=== PATIENT | male | born 1965 | race Caucasian/White ===

== ENCOUNTER 2025-07-23 18:24 | Observation (INO) | payer OTHER, SELFPAY ==
[2025-07-23] VITALS (10 sets, daily range): BP systolic 111–153; BP diastolic 74–130; BMI 32.9; BMI 31.8
--- NOTE | 2025-07-23 13:00 | ED.GENMED ---
History of Present Illness
<Tiara Lam PA-C - Last Filed: 07/23/25 18:11>
General
Chief Complaint: Chest Pain
Source: patient
Exam Limitations: none
Time Seen by Provider: 07/23/25 12:45
History of Present Illness
History of Present Illness:
60yoM with a history of hypertension, hyperlipidemia, and TIA presenting for evaluation of chest pain. Symptoms began yesterday morning when he woke up from sleep. He reports a tightness sensation throughout his upper chest. He also is having a
scratchy sensation in the back of this throat. He went to see his PCP today and was having significant shortness of breath while walking up the steps. His oxygen saturation was 85-90% at his PCP's office and he was sent to the ED for evaluation.
Patient was diagnosed with pneumonia about 5 months ago and he states he never fully rebounded from that. He denies any calf pain, leg swelling, fevers. He chews tobacco but denies smoking.
Past History
<Tiara Lam PA-C - Last Filed: 07/23/25 18:11>
Past History
ED Past Medical History: HTN, Hypercholesterolemia and Other (Ascending aortic aneurysm)
Social History
Tobacco: Non-smoker
Phy Exam
<Tiara Lam PA-C - Last Filed: 07/23/25 18:11>
General Physical Exam
General Presentation: well appearing and no apparent distress
General Skin: warm and dry
General Habitus: normal
General Mental: alert
ENT Exam
ENT Exam: normocephalic
Cardiovascular Exam
Cardiovascular Exam: no edema, no murmur and tachycardia
Pulmonary Exam
Pulmonary Exam: lungs clear, no respiratory distress, no rales, no crackles, no rhonchi and no wheezing
Neurological Exam
Neurological Exam: alert
[place] Coma Scale
Eye Opening: Spontaneous
Verbal Response: Oriented
Motor Response: Obeys Commands
GCS Total Score: 15
Skin Exam
Skin Exam: normal color and warm/dry
Psychiatric Exam
Psychiatric Exam: normal mood/affect
Scores
<Tiara Lam PA-C - Last Filed: 07/23/25 18:11>
Heart Score for Chest Pain Patients
STEMI patient?: No
History: Slightly or Non-Suspicious
ECG: Normal
Age: >45 - <65 years
Risk Factors: 1 or 2 Risk Factors
Troponin: </= Normal Limit
Heart Score for Chest Pain Patients: 2
Heart Score Risk: 2.5% MACE over next 6 weeks
Course
<Tiara Lam PA-C - Last Filed: 07/23/25 18:11>
Orders/Labs/Results
Orders:
Orders
07/23/25
Electrocardiogram (*1) Stat
Comment: DONE
07/23/25 12:58
Cardiac Monitoring- Treatment ONCE
07/23/25 12:59
CT Chest PE Study Urgent
Comment:
Reason For Exam: Chest pain, hypoxia
07/23/25 13:21
COVID-19 Antigen Urgent
Source: Nasal Swab
Complete Blood Count/With Diff Urgent
Comprehensive Metabolic Panel Urgent
NT-proBNP Urgent
Troponin I Urgent
Influenza A+B Rapid Molecular Urgent
VICTOR HUGO Source: Nasal Swab
Specimen Description:
07/23/25 17:12
CefTRIAXone [Rocephin] 2,000 mg IV NOW STA
Abnormal Lab Results
07/23/25
13:21
WBC 19.5 H 10^3/uL
(4.8-10.8)
RBC 3.85 L 10^6/uL
(4.70-6.10)
Hgb 11.8 L g/dL
(13.0-18.0)
Hct 35.9 L %
(39.0-52.0)
MCHC 32.9 L g/dL
(33.0-37.0)
Abs Immat Gran (auto) 0.1 H 10^3/uL
(0-0.05)
Absolute Neuts (auto) 16.1 H 10^3/uL
(1.4-6.5)
Absolute Monos (auto) 1.1 H 10^3/uL
(0.1-0.6)
Neutrophils % 82.8 H %
(42.2-75.2)
Lymphocytes % 10.9 L %
(20.5-51.1)
BUN 27 H mg/dl
(9-20)
Glucose 110 H mg/dl
(70-99)
Calcium 8.2 L mg/dl
(8.4-10.2)
07/23/25 13:21
07/23/25 13:21
Vital Signs
Initial and Last Documented VS:
Initial Vital Signs
Temp Pulse Resp Pulse Ox
98.7 F 119 19 95
07/23/25 12:35 07/23/25 12:35 07/23/25 12:35 07/23/25 12:35
Last Documented Vital Signs
Temp Pulse Resp BP Pulse Ox
98.7 F 78 16 118/79 100
07/23/25 12:35 07/23/25 18:00 07/23/25 18:00 07/23/25 18:00 07/23/25 18:00
Dwaynelt;Huey Biswas, - Last Filed: 07/23/25 13:48>
Orders/Labs/Results
Orders:
Orders
07/23/25
Electrocardiogram (*1) Stat
Comment: DONE
07/23/25 12:58
Cardiac Monitoring- Treatment ONCE
07/23/25 12:59
CT Chest PE Study Urgent
Comment:
Reason For Exam: Chest pain, hypoxia
07/23/25 13:21
COVID-19 Antigen Urgent
Source: Nasal Swab
Complete Blood Count/With Diff Urgent
Comprehensive Metabolic Panel Urgent
NT-proBNP Urgent
Troponin I Urgent
Influenza A+B Rapid Molecular Urgent
VICTOR HUGO Source: Nasal Swab
Specimen Description:
07/23/25 17:12
CefTRIAXone [Rocephin] 2,000 mg IV NOW STA
Abnormal Lab Results
07/23/25
13:21
WBC 19.5 H 10^3/uL
(4.8-10.8)
RBC 3.85 L 10^6/uL
(4.70-6.10)
Hgb 11.8 L g/dL
(13.0-18.0)
Hct 35.9 L %
(39.0-52.0)
MCHC 32.9 L g/dL
(33.0-37.0)
Abs Immat Gran (auto) 0.1 H 10^3/uL
(0-0.05)
Absolute Neuts (auto) 16.1 H 10^3/uL
(1.4-6.5)
Absolute Monos (auto) 1.1 H 10^3/uL
(0.1-0.6)
Neutrophils % 82.8 H %
(42.2-75.2)
Lymphocytes % 10.9 L %
(20.5-51.1)
BUN 27 H mg/dl
(9-20)
Glucose 110 H mg/dl
(70-99)
Calcium 8.2 L mg/dl
(8.4-10.2)
07/23/25 13:21
07/23/25 13:21
Vital Signs
Initial and Last Documented VS:
Initial Vital Signs
Temp Pulse Resp Pulse Ox
98.7 F 119 19 95
07/23/25 12:35 07/23/25 12:35 07/23/25 12:35 07/23/25 12:35
Last Documented Vital Signs
Temp Pulse Resp BP Pulse Ox
98.7 F 78 16 118/79 100
07/23/25 12:35 07/23/25 18:00 07/23/25 18:00 07/23/25 18:00 07/23/25 18:00
<Tiara Lam PA-C - Last Filed: 07/23/25 18:11>
MDM/Problems Addressed
Differential Diagnosis Includes:
60yoM here with upper chest tightness since yesterday morning. Was hypoxic to 85% at PCP's office today. Oxygen saturation 95% in triage although he is on 2L NC on initial exam. HR in the 100-110 range. Lungs CTA without significant wheeze or rales.
Differential diagnosis includes but is not limited to: PE, ACS, pneumonia, bronchitis
Initial ED plan: Triage EKG shows sinus tachycardia without ischemic changes. Will check cardiac labs, COVID/flu swab, and CTA chest.
<Tiara Lam PA-C - Last Filed: 07/23/25 18:11>
*Pulse Oximetry
SaO2: 95
Oxygen Mode of Delivery: Room air
Patient hypoxic: yes
*EKG
Interpreted by ED Provider?: Yes
EKG Intrepretation Date: 07/23/25
Heart Rate: 108
Rate: tachycardiac
Rhythm: sinus
[place]: normal axis
Interval: normal interval
QRS Pattern: normal QRS
Ischemia: no ischemia
*Critical Care Note
Total Time (30-74mins, 75-104mins- exclusive of procedures): Not Applicable
<Tiara Lam PA-C - Last Filed: 07/23/25 18:11>
Update Note
Update Note:
Labs reveal a leukocytosis with a white count of 19.5. Troponin and BNP normal. Chest CT is negative for PE. Imaging reveals right lower lobe pneumonia as well as mild right hilar and mediastinal adenopathy. IV Rocephin ordered and patient
admitted for further management. Patient on 2 L nasal cannula at time of admission.
ED Attending Note
<Tiara Lam PA-C - Last Filed: 07/23/25 18:11>
-
Portions of this chart may have been created with voice recognition software.� Occasional wrong word or��sound alike� substitutions may have occurred due to the inherent limitations of voice recognition software.
<Huey Biswas DO - Last Filed: 07/23/25 13:48>
ED Attending Note
Patient seen and examined by attending physician: Yes
I performed the substantive portion of visit, reviewed & personally made and approve the management plan that is documented in note by myself or SHELLY.: Yes
ED Attending Note:
I evaluated the patient at bedside. As I initially walked in the room he was already on oxygen. I took him off oxygen and about 5 minutes later, his room air sats varied from 91 to 93% with a good waveform. He did describe exertional dyspnea
today and has some vague shortness of breath over the last few months since being diagnosed and treated for presumed pneumonia. CTA will be obtained for further evaluation
Discharge Plan
Departure
Patient Disposition: Admit
Date of Disposition: 07/23/25
Time of Disposition: 17:14
Presentation/result/management discussed w/ accepting MD/DO: Hospitalist
Discharge Problem:
Right lower lobe pneumonia, Acute hypoxic respiratory failure
Prescriptions:
No Action
doxepin 75 mg capsule
75 mg PO HS
methadone
177 mg PO DAILY
Patient Comments:
06/07/2023: Pt goes to [facility] [phone] Hours: Ma- [phone], [place] [phone], [place] [facility].
atorvastatin 20 mg Tablet
20 mg PO QPM Qty: 30 0RF
hydrochlorothiazide 25 mg Tablet
25 mg PO DAILY Qty: 30 0RF
metoprolol succinate 25 mg Tablet Extended Release 24 Hr
25 mg PO DAILY Qty: 30 0RF
Referrals:
Keith Rivera CRNP [Family Provider, Family Practice]
Interventions
Interventions:
*Risk Screen - Suicide Last Done: 07/23/25 12:35
*General Assessment Last Done: 07/23/25 12:39
*Neglect/Abuse Screening Last Done: 07/23/25 12:35
*ED- Fall Risk Assessment Last Done: 07/23/25 13:26
*ED COVID-19 Vaccine History Last Done: 07/23/25 12:39
*ED Influenza Vaccine History Last Done: 07/23/25 12:39
ED- Cardiac Assessment Last Done: 07/23/25 13:26
Discharge Date and Time
Print Language: PUERTO RICAN
[2025-07-23 13:49] LABS: Hematocrit 35.9 % (39.0-52.0); Hemoglobin 11.8 g/dL (13.0-18.0); Mean Corp Hgb Conc. 32.9 g/dL (33.0-37.0); Mean Corpuscular Volume 93.2 fL (80.0-94.0); Nucleated Red Blood Cells % 0 % (-); Platelet Count 177 10^3/uL (130-400); Red Cell Dist. Width 13.6 % (11.5-14.5)
[2025-07-23 14:05] LABS: COVID-19 Antigen Negative (Negative)
[2025-07-23 14:15] LABS: ALT (SGPT) 16 U/L (0-50); AST (SGOT) 17 U/L (17-59); Albumin 3.7 g/dl (3.5-5.0); Alkaline Phosphatase 71 U/L (38-126); Blood Urea Nitrogen 27 mg/dl (9-20); Calcium 8.2 mg/dl (8.4-10.2); Carbon Dioxide 28 mmol/L (22-30); Chloride 102 mmol/L (98-107); Estimated Creatinine Clearance 94 ml/min; Glucose 110 mg/dl (70-99); Potassium 4.4 mmol/L (3.5-5.1); Sodium 137 mmol/L (135-145); Total Protein 6.3 g/dl (6.3-8.2); eGFR > 60.00
[2025-07-23 14:17] LABS: Troponin I < 0.012 ng/ml
[2025-07-23] MEDS: ROCEPHIN 2000 MG IV (17:32)
--- NOTE | 2025-07-23 18:14 | HPS.HSE ---
Family Physician
-
Family Physician: DE Tinoco
Chief Complaint
-
chest tightness
History of Present Illness
60-year-old male past medical history of hypertension, hyperlipidemia, TIA, anxiety presenting for chest pain. Symptoms started yesterday when he woke up from sleep. Chest tightness throughout the upper chest. Also has scratchy sensation in the
back of his throat and cough. He went to see his primary care physician today and had significant shortness of breath while walking up the steps. O2 saturation was 85 to 90% at the office and he was sent to the emergency room. He was diagnosed
with pneumonia 5 months ago and never recovered fully from that. Denies any calf pain, leg swelling or fever. He chews tobacco denies smoking.
Denies fevers or chills.
Medical History
Past Medical History
Past Medical History: Reports Other ( hypertension, hyperlipidemia, TIA, anxiety)
Past Surgical History: Reports Other (nose surgery )
Social History
Tobacco: Non-smoker
Alcohol: None
Drug: None
Family History
Family History: Not pertinent
Allergies / Home Medications
Allergies reflects when Allergies were last updated in [employer].
Home Medications with original date entered in [employer]
Allergy/Medication List:
Allergies
Allergy/AdvReac Type Severity Reaction Status Date / Time
No Known Allergies Allergy Verified 07/23/25 13:14
Home Medications
doxepin 75 mg capsule 75 mg PO HS Mental Health/Anxiety 06/07/23
methadone 177 mg PO DAILY substance use disorder 06/07/23
atorvastatin 20 mg tablet 20 mg PO QPM #30 tabs 06/08/23
hydrochlorothiazide 25 mg tablet 25 mg PO DAILY #30 tabs 06/08/23
metoprolol succinate 25 mg tablet,extended release 24 hr 25 mg PO DAILY #30 tabs 06/08/23
Review of Systems
-
Constitutional: Reports No Symptoms
EENT: Reports No Symptoms
Respiratory: Reports See HPI
Cardiac: Reports No Symptoms
Abdomen/GI: Reports No Symptoms
: Reports No Symptoms
Musculoskeletal: Reports No Symptoms
Skin: Reports No Symptoms
Neurological: Reports No Symptoms
Endocrine: Reports No Symptoms
Hematologic/Lymphatic: Reports No Symptoms
Psych: Reports No Symptoms
Physical Exam
Vital Signs
Vital Signs
Temp Pulse Resp BP Pulse Ox
98.7 F 78 16 118/79 100
07/23/25 12:35 07/23/25 18:00 07/23/25 18:00 07/23/25 18:00 07/23/25 18:00
Physical Exam
General: Well Developed, Well Nourished and No Apparent Distress
HEENT: NormoCephalic, Moist mucous membranes and Atraumatic
Respiratory: Clear
Cardiac: S1/S2 and Regular Rhythm; No Murmur or Rub
GI: Soft, Non Tender, Non Distended and Normal Bowel Sounds; No Organomegaly
Rectal: Deferred by Provider
Musculoskeletal: No Clubbing, No Cyanosis and No Edema
Skin: No Rash
Neuro: Nonfocal/grossly intact
Laboratory Results
-
07/23/25 13:21
07/23/25 13:21
Laboratory Results
Total Bilirubin 1.1 mg/dl (0.2-1.3) 07/23/25 13:21
AST 17 U/L (17-59) 07/23/25 13:21
ALT 16 U/L (0-50) 07/23/25 13:21
Alkaline Phosphatase 71 U/L (38-126) 07/23/25 13:21
Troponin I < 0.012 ng/ml 07/23/25 13:21
Data Reviewed
-
Lab Data: Labs Reviewed by me
Old Records: Reviewed
Impression/Plan
-
IMPRESSION:
PLAN:
# Sepsis (leukocytosis, tachycardia) secondary to mild to moderate right lower lobe pneumonia
-Influenza and COVID-negative
- IV fluids
- Ceftriaxone/azithromycin
Essential hypertension
- Hold hydrochlorothiazide
- Continue metoprolol
Hyperlipidemia
- Continue statin
History of TIA
Anxiety
- Continue doxepin
Former substance abuse
Incidental ascending aortic aneurysm
History of pulmonary nodule
Full code
DVT prophylaxis�heparin
Regular diet
[2025-07-23] MEDS: ZITHROMAX INFUSION 250 IV (22:35)
[2025-07-23] MEDS: NSS 1000 IV (22:36)
[2025-07-23] MEDS: HEPARIN 5000 UNITS SC (22:36)
[2025-07-23] MEDS: TYLENOL 650 MG PO (23:01)
[2025-07-24] MEDS: TYLENOL 650 MG PO ×2 (06:33→12:40)
[2025-07-24 07:10] VITALS: BP 130/79
[2025-07-24 07:42] LABS: Hematocrit 35.1 % (39.0-52.0); Hemoglobin 11.1 g/dL (13.0-18.0); Mean Corp Hgb Conc. 31.6 g/dL (33.0-37.0); Mean Corpuscular Volume 94.1 fL (80.0-94.0); Nucleated Red Blood Cells % 0 % (-); Platelet Count 166 10^3/uL (130-400); Red Cell Dist. Width 13.4 % (11.5-14.5)
[2025-07-24 08:28] LABS: ALT (SGPT) 17 U/L (0-50); AST (SGOT) 19 U/L (17-59); Albumin 3.6 g/dl (3.5-5.0); Alkaline Phosphatase 74 U/L (38-126); Blood Urea Nitrogen 18 mg/dl (9-20); Calcium 8.1 mg/dl (8.4-10.2); Carbon Dioxide 29 mmol/L (22-30); Chloride 105 mmol/L (98-107); Estimated Creatinine Clearance > 125 ml/min; Glucose 116 mg/dl (70-99); Potassium 4.4 mmol/L (3.5-5.1); Sodium 136 mmol/L (135-145); Total Protein 6.2 g/dl (6.3-8.2); eGFR > 60.00
[2025-07-24] MEDS: HEPARIN 5000 UNITS SC (08:52)
[2025-07-24] MEDS: NSS IV (11:07)
--- NOTE | 2025-07-24 12:34 | CM ---
Patient seen bedside, initial assessment completed. Patient is a 60-year-old male past medical history of hypertension, hyperlipidemia, TIA, anxiety presenting for chest pain.
Patient resides alone in a 2 story town home, 10 steps to enter from the outside. Patient is independent in all areas, no DME. Denies any therapy hx.
Address, point of contact and insurance verified
PCP: Joaquín Skinner
Pharmacy: [facility]
Patient admitted under observation. OOBS form verbally reviewed, copy provided, copy on chart
Patient stated he was told he possibly will be discharging this afternoon. Confirmed transportation home
Plan: Home, no needs
--- NOTE | 2025-07-24 14:04 | W.PN.UPDATE ---
Update Note
Progress Note Update
I have independently evaluated the patient at the bedside. I reviewed the case with the resident and agree with documentation unless otherwise specified.
AFVSS on room air. White cell count downtrending. Patient states he feels much better, breathing well and denies any complaints. Ultimately states that he was sent in by his family doctor due to his chest discomfort and concern for pulmonary
embolism. CTA yesterday was negative for signs of PE.
AO x 4, NAD. Benign cardiopulmonary and abdomen exam. No edema or JVD. Palpable pulses. Skin warm and dry. No focal neurologic deficit
#Sepsis secondary to CAP. No blood cultures taken on arrival. Quick clinical improvement with ceftriaxone and azithromycin. Patient eager for discharge today. Curb 65 score 0-1. As PE has been ruled out on CTA, no contraindications to discharge
today. Will transition from ceftriaxone and azithromycin to cefdinir 300 mg every 12 hours and doxycycline 100 mg every 12 hours to complete 5-day course of antibiotics. Avoid azithromycin as he is also on methadone and want to avoid QTc
prolongation. Encourage follow-up with PCP in within 1 week
Diet -- Regular
DVT prophylax -- Lovenox
CODE STATUS -- Full code
Disposition -- Home today
--- NOTE | 2025-07-24 14:17 | W.PN.HOSP.TC ---
Today's Communication/Plan
-
Patient received IV ceftriaxone and azithromycin and will be discharged on oral cefdinir 300 mg every 12 hours and doxycycline 100 mg every 12 hours to complete 5-day course of antibiotics.
azithromycin has been avoided at the discharge as he is also on methadone to avoid the risk of QTc prolongation
Assessment / Plan
Assessment / Plan
IMPRESSION:
60-year-old male past medical history of hypertension, hyperlipidemia, TIA, anxiety presenting for chest pain. Symptoms started yesterday when he woke up from sleep. Chest tightness throughout the upper chest. Also has scratchy sensation in the
back of his throat and cough. He went to see his primary care physician today and had significant shortness of breath while walking up the steps. O2 saturation was 85 to 90% at the office and he was sent to the emergency room. He was diagnosed
with pneumonia 5 months ago and never recovered fully from that. Denies any calf pain, leg swelling or fever. He chews tobacco denies smoking.
PLAN:
# Sepsis (leukocytosis, tachycardia) secondary to mild to moderate right lower lobe pneumonia
-Influenza and COVID-negative
- IV fluids
- Ceftriaxone/azithromycin IV completed two days and will be discharged on Doxycycline and cefdinir for another 3 days
Essential hypertension
- Hold hydrochlorothiazide
- Continue metoprolol
Hyperlipidemia
- Continue statin
History of TIA
Anxiety
- Continue doxepin
Former substance abuse
Incidental ascending aortic aneurysm
History of pulmonary nodule
Full code
DVT prophylaxis�heparin
Regular diet
Anticipated Discharge: Today
Subjective/Interval History
-
Date of Service: July 24, 2025
Patient denied chest pain, sob, chest tightness. He stated that he feels good today and wanted to go home.
Objective Data
-
Labs:
Laboratory Results
07/24/25
07:10
WBC 11.5 H
Hgb 11.1 L
Hct 35.1 L
Plt Count 166
Sodium 136
Potassium 4.4
Chloride 105
Carbon Dioxide 29
BUN 18
Creatinine 0.8
Glucose 116 H
Calcium 8.1 L
Total Bilirubin 0.8
AST 19
ALT 17
Alkaline Phosphatase 74
Vital Signs:
Vital Signs
Temp Pulse Resp BP Pulse Ox
98.3 F 88 18 130/79 96
07/24/25 07:10 07/24/25 07:10 07/24/25 07:10 07/24/25 07:10 07/24/25 07:10
I&O
07/23/25 07/24/25 07/25/25
06:59 06:59 06:59
Intake Total 220 / 220
Balance 220 / 220
Review of Systems
-
History Source: Patient
Respiratory: Reports No Symptoms
Cardiac: Reports No Symptoms
Abdomen/GI: Reports No Symptoms
Genitourinary: Reports No Symptoms
Musculoskeletal: Reports No Symptoms
Physical Exam
-
General: Well Developed, Well Nourished and No Apparent Distress
Respiratory: Clear to Auscultation
Cardiac: Regular Rhythm and S1/S2
GI: Soft, Nontender and Nondistended
Musculoskeletal: No Clubbing, No Cyanosis and No Edema
Neuro: Awake, Alert and Oriented
[2025-07-24 15:13] VITALS: BP 143/89
[2025-07-24] MEDS: STERILE WATER FOR INJECTION 10 ML IV (15:18)
[2025-07-24] MEDS: ROCEPHIN 1000 MG IV (15:20)
--- NOTE | 2025-07-25 05:01 | W.DCSUMMARY ---
Documented by User: Sofiya Patel MD, Resident 07/25/25 05:34
Discharge Summary
Discharge Data
Date of Admission: 07/23/25
Date of Discharge: 07/24/25
-
Pending Results: No
Additional Pending Results:
Discharging Physician:
Logan Luong, Sofiya Patel
Disposition:
Home
Primary Care Physician:
Keith Rivera
Principal Discharge Diagnosis:
Acute hypoxic respiratory failure secondary to Pneumonia
Chronic Discharge Diagnosis:
hypertension, hyperlipidemia, TIA, anxiety, Ascending aortic aneurysm, Opioid dependence in remission
Hospital Course:
60-year-old male presenting for chest tightnes. Symptoms started when he woke up from sleep, chest tightness throughout the upper chest. Also has scratchy sensation in the back of his throat and cough. He went to see his primary care physician
today and had significant shortness of breath while walking up the steps. O2 saturation was 85 to 90% at the office and he was sent to the emergency room. He was diagnosed with pneumonia 5 months ago and never recovered fully from that. Denies
any calf pain, leg swelling or fever. At the hospital WBC counts was 19.5 and heart rate 119 with no fever and EKG showed sinus tachycardia with no signs of ischemic changes. CT angiography of the chest was done and pulmonary embolism has been rules
out and it showed mild to moderate right lower lobe pneumonia and mild pneumonia in the left lower lobe, left upper lobe, and lingula.
He was negative for Legionella Urinary Antigen, Streptococcus pneumoniae Antigen, Influenza Types A & B and COVID-19
He started on IV Ceftriaxone and Azithromycin for two days at the hospital. Patient remained a febrile and WBC counts decreased to 11.5 on 07/24/2025 with normal vital signs. Patient discharged in stable condition and to complete Doxycycline 100 mg
BID PO and Cefdinir 300mg capsule PO BID for three days.
Important Imaging Findings:
CT angiography of the chest 07/23/2025
COMPARISON: 06/07/2023.
FINDINGS:
Respiratory motion degradation in the upper and lower lobes. As result, there is diminished and/or inhomogeneous opacification of the pulmonary arteries, resulting in nondiagnostic assessment of the lower lobe pulmonary arteries beyond the segmental
level as well as the right upper lobe pulmonary arteries subsegmental level.
As far as visualized, no central pulmonary embolism. No filling defect to suggest pulmonary embolism with confidence to the lower lobe segmental level.
Pulmonary artery branching order level of the most proximal pulmonary embolism: N/A
Aorta: Mild ectasia of the ascending aorta, measuring up to 3.8 cm. No evidence of dissection. Developmental variant noted of the branching vessels, with left common carotid artery origin from the innominate artery.
Hilum and mediastinum: Mild right hilar adenopathy measuring 1.3 cm. Small right paratracheal lymph node with short axis measurement 0.8 cm. Proximal right para tracheal lymph node borderline in size, 10 mm. These are new compared to prior
examination.
Pericardium: No pericardial effusion.
Pleural space: No pleural effusion.
Pneumothorax: Negative.
LUNGS:
Moderate patchy parenchymal consolidation is demonstrated in the posterior medial right lower lobe, consistent with pneumonia. Other areas of subtle pneumonitis/pneumonia are noted in the posterior medial left lower lobe, lingula, and left upper
lobe. Presumed mild atelectasis dependently in the right upper lobe.
Osseous review:
No compression deformity.
Limited upper abdomen:
No significant abnormality.
IMPRESSION:
Respiratory motion degradation in the upper and lower lobes.
No evidence of pulmonary embolism, as far as visualized with confidence to the segmental level.
Pulmonary artery branching order level of the most proximal pulmonary embolism: N/A
Mild to moderate right lower lobe pneumonia. Other patchy mild pneumonitis/pneumonia in the left lower lobe, left upper lobe, and lingula.
Mild right hilar, and mediastinal adenopathy.
If the patient has emphysema, patient should be assessed for an annual low dose lung cancer CT program, as pulmonary emphysema is an independent risk factor for lung cancer.
Discharge Plan
-
Patient Disposition: Home (Routine Discharge)
Discharge Diagnosis/Procedures: Sepsis due to Pneumonia
Condition: Good
Diet: No restrictions
Activity: As tolerated
Driving Restrictions: As prior to admission
Bathing Restrictions: OK to Shower
Referrals:
Keith Rivera CRNP [Family Provider, [facility]] - in less than 1 week
Additional Discharge Medication Instructions: Doxycycline 100 mg BID PO for three days.
Cefdinir 300mg capsule PO BID for three days
Prescriptions:
New
doxycycline hyclate 100 mg tablet
100 mg PO BID 3 Days Qty: 6 0RF
cefdinir 300 mg capsule
300 mg PO BID 3 Days Qty: 6 0RF
Continued
doxepin 75 mg capsule
75 mg PO HS
methadone
177 mg PO DAILY
Patient Comments:
06/07/2023: Pt goes to [facility] [phone] Hours: [place]-Fr [phone], [place] [phone], [place] [facility].
atorvastatin 20 mg tablet
20 mg PO QPM
hydrochlorothiazide 25 mg tablet
25 mg PO DAILY
metoprolol succinate 25 mg tablet extended release 24 hr
25 mg PO DAILY
Discharge Orders:
Discharge Patient (As Directed); Ordered 07/24/25
Ordered By: Sofiya Patel
Discharge Date and Time
Discharge Date/Time: 07/24/25 15:37
Print Language: GREENLANDIC

Documented by User: Logan Luong DO 07/25/25 14:26
Discharge Summary
Discharge Data
Date of Admission: 07/23/25
Date of Discharge: 07/24/25
Total time spent discharging patient (in min): 31
Discharge Plan
-
Patient Disposition: Home (Routine Discharge)
Discharge Diagnosis/Procedures: Sepsis due to Pneumonia
Condition: Good
Diet: No restrictions
Activity: As tolerated
Driving Restrictions: As prior to admission
Bathing Restrictions: OK to Shower
Referrals:
Keith Rivera CRNP [Family Provider, [facility]] - in less than 1 week
Additional Discharge Medication Instructions: Doxycycline 100 mg BID PO for three days.
Cefdinir 300mg capsule PO BID for three days
Prescriptions:
New
doxycycline hyclate 100 mg tablet
100 mg PO BID 3 Days Qty: 6 0RF
cefdinir 300 mg capsule
300 mg PO BID 3 Days Qty: 6 0RF
Continued
doxepin 75 mg capsule
75 mg PO HS
methadone
177 mg PO DAILY
Patient Comments:
06/07/2023: Pt goes to [facility] [phone] Hours: Ma- [phone], [place] [phone], [place] [facility].
atorvastatin 20 mg tablet
20 mg PO QPM
hydrochlorothiazide 25 mg tablet
25 mg PO DAILY
metoprolol succinate 25 mg tablet extended release 24 hr
25 mg PO DAILY
Discharge Orders:
Discharge Patient (As Directed); Ordered 07/24/25
Ordered By: Sofiya Patel
Discharge Date and Time
Discharge Date/Time: 07/24/25 15:37
Print Language: GREENLAND[place]
== END 2025-07-24 15:37 | disposition home or self-care (01) ==
LOC: 4 WEST ACU 18:24
PROVIDERS: Physician Assistant; Specialist Research Data Abstracter/Coder; ADMITTING PHYSICIAN Hospitalist; ATTENDING PHYSICIAN Internal Medicine; EMERGENCY PHYSICIAN Emergency Medicine; FAMILY PHYSICIAN Nurse Practitioner Family
DX: A41.89 Other specified sepsis (principal); J18.9 Pneumonia, unspecified organism; J96.01 Acute respiratory failure with hypoxia; I10 Essential (primary) hypertension; E78.00 Pure hypercholesterolemia, unspecified; F11.21 Opioid dependence, in remission; I71.21 Aneurysm of the ascending aorta, without rupture; Z11.52 Encounter for screening for COVID-19; Z79.899 Other long term (current) drug therapy; D72.829 Elevated white blood cell count, unspecified; F41.9 Anxiety disorder, unspecified; Z86.73 Personal history of transient ischemic attack (TIA), and cerebral infarction without residual deficits; Z72.0 Tobacco use
CPT/HCPCS: 71275; 80053; 83880; 84484; 85025; 87449; 87502; 87811; 87899; 93005; 96374; 99285; G0378; Q9967